=== PATIENT | male | born 1955 | race Caucasian/White ===

== ENCOUNTER → 2017-03-26 | Outpatient (CLI) | payer BC ==
[2017-03-26 11:09] LABS: PROLACTIN 7.15 ng/mL
[2017-04-07 10:14] LABS: TESTOSTERONE,TOTAL 1921 ng/dL (250-1100)
== END | disposition home or self-care (01) ==
LOC: C.LAB1850 09:07
PROVIDERS: ATTEND Plastic Surgery
DX: N62 Hypertrophy of breast (principal)